=== PATIENT | female | born 1960 | race Caucasian/White ===

== ENCOUNTER 2017-02-11 09:01 | Outpatient (CLI) | payer OTHER | END 2017-02-11 09:02 | disposition home or self-care (01) | DX: Z00.00 Encounter for general adult medical examination without abnormal findings (principal); E78.5 Hyperlipidemia, unspecified ==

== ENCOUNTER 2017-04-29 18:35 | Emergency (ER) | payer OTHER ==
[2017-04-29] MEDS ORDERED: SODIUM CHLORIDE 0.9% 1,000 ML IV ONE ×5 (19:31→22:59)
[2017-04-29 19:44] LABS: BASOPHILS % (AUTO) 0.3 %; HCT - HEMATOCRIT 36.8 % (37.0-47.0); HGB - HEMOGLOBIN 12.2 g/dL (12.0-16.0); LYMPHOCYTES % (AUTO) 4.6 %; MEAN CORPUSCULAR HEMOGLOBIN 29.2 pg (27.0-31.0); MEAN CORPUSCULAR HGB CONC 33.2 g/dL (32.0-36.0); MEAN CORPUSCULAR VOLUME 87.8 fL (81.0-99.0); MEAN PLATELET VOLUME 9.3 fL (7.9-10.8); MONOCYTES % (AUTO) 1.5 %; NEUTROPHILS % (AUTO) 92.6 %; RED CELL DISTRIBUTION WIDTH 13.5 % (12.0-15.0); UNCORRECTED WHITE BLOOD COUNT 6.7 x10^3/uL; WHITE BLOOD COUNT 6.7 x10^3/uL (4.8-10.8)
[2017-04-29 19:57] LABS: ALBUMIN/GLOBULIN RATIO 0.9 (1.0-2.2); BILIRUBIN,TOTAL 1.1 mg/dL (0.2-1.0); CALCIUM 8.4 mg/dL (8.5-10.3); CREATININE 2.1 mg/dL (0.4-1.0); MAGNESIUM 1.6 mg/dL (1.7-2.8); POTASSIUM 3.1 mmol/L (3.5-5.0); TOTAL PROTEIN 6.8 g/dL (6.7-8.2)
[2017-04-29 20:12] LABS: BAND NEUTROPHILS % (MANUAL) 25 %; EOSINOPHILS % (MANUAL) 3 %; LYMPHOCYTES % (MANUAL) 9 %; NEUTROPHILS % (MANUAL) 62 %; PLATELET ESTIMATE, MANUAL DECREASED (<130,000) (NORMAL); PLATELET MORPHOLOGY NORMAL APPEARANCE (NORMAL); TOTAL CELLS COUNTED 100
[2017-04-29 20:14] LABS: NP AUTO DIFFERENTIAL? YES
[2017-04-29 20:15] LABS: NP MAN DIFFERENTIAL? NO
[2017-04-29 20:19] LABS: BILIRUBIN,URINE NEGATIVE (NEGATIVE)
[2017-04-29 20:22] LABS: UA w/ MICROSCOPIC CHARGE YES
[2017-04-29] MEDS ORDERED: cefTRIAXone 1 GM in SODIUM CHLORIDE 0.9% MINIBAG 100 ML IV STA (20:34)
[2017-04-29] MEDS ORDERED: ACETAMINOPHEN 1,000 MG/100 ML 100 ML IV STA (20:35)
--- NOTE | 2017-04-29 20:35 | ED Physician Documentation ---
PD HPI SYNCOPE - Stated complaint Stated Complaint: CHILLS - Chief complaint Chief Complaint: General - History obtained from History obtained from: Patient - History of Present Illness Witnessed: Witnessed (She has had some right back pain and some lower abd pain for 2-3 days. Seen at [facility] 2 days ago and Dx with UTI, Rx with Macrobid. She says she has not had much change in the right back pain until this afternoon. Pain increased and she felt lightheaded but did not faint. Feeling generally weak and chills. Had seen PMD earlier in the day and had outpt CT ordered for this evening to evfl for berkley stone. However feeling more generally sick and so here. Initially on arrival, has tachycardia and low BP at 86 systolic. She is awake and alert though.) Timing - onset: How many days ago (some pain in back for 2-3 days, but feeling weak, chills, worse pain just the past few hours.) Preceding symptoms: Abdominal pain (right side into right flank.). No: Headache Associated symptoms: Abdominal pain (right abd to right flank). No: Headache, Chest pain, Dyspnea, Nausea / vomiting Contributing factors: Decreased PO intake (some decreased intake due to not feeling well.). 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 Patient not feeling better. Increased flank pain and went to PMD today, with order outpt CT KUB to eval for stone. Got feeeling sicker this afternoon before that.) Review of Systems Constitutional: reports: Fever, Chills, Myalgias Nose: denies: Rhinorrhea / runny nose, Congestion Throat: denies: Sore throat Cardiac: denies: Chest pain / pressure Respiratory: denies: Cough GI: reports: Abdominal Pain, Nausea. denies: Abdominal Swelling, Vomiting, Constipation, Diarrhea : denies: Dysuria, Frequency, Discharge, Vaginal bleeding Skin: denies: Rash, Lesions Neurologic: reports: Generalized weakness, Near syncope. denies: Focal weakness , Numbness, Syncope, Altered mental status, Headache Endocrine: denies: Weight loss, Easy bruising / bleeding Immunocompromised: denies: Immunocompromised PD PAST MEDICAL HISTORY - Past Medical History Past Medical History: Yes Cardiovascular: Hypertension Respiratory: None Neuro: None GI: GERD : Kidney stones, Other (usually good renal function) - Past Surgical History Past Surgical History: Yes - Present Medications Home Medications: Ambulatory Orders Medication Instructions Recorded Confirmed Atorvastatin [Lipitor] 20 mg PO DAILY 04/29/17 04/29/17 Azelastine HCl 137 mcg NS DAILY 04/29/17 04/29/17 [place]-3/Dha/Epa/Fish Oil [Fish Oil 1 each PO DAILY 04/29/17 04/29/17 1,000 mg Softgel] Omeprazole [PriLOSEC] 20 mg PO DAILY 04/29/17 04/29/17 hydroCHLOROthiazide [Hydrodiuril] 10 mg PO DAILY 04/29/17 04/29/17 raNITIdine [Zantac] 150 mg PO DAILY 04/29/17 04/29/17 - Allergies Allergies/Adverse Reactions: Allergies Allergy/AdvReac Type Severity Reaction Status Date / Time sulfamethoxazole Allergy Respiratory Verified 04/29/17 19:46 [From Bactrim] trimethoprim [From Bactrim] Allergy Respiratory Verified 04/29/17 19:46 - Social History Does the pt smoke?: No Smoking Status: Never smoker Does the pt drink ETOH?: No Does the pt have substance abuse?: No - Family History Family history: reports: Non contributory PD ED PE NORMAL - Vitals Vital signs reviewed: Yes - General General: Alert and oriented X 3, Well developed/nourished, Other (slight pallor) - Neck Neck: Supple, no meningeal sign, No adenopathy - Cardiac Cardiac: RRR (tachycardic), No murmur - Respiratory Respiratory: Clear bilaterally - Abdomen Abdomen: Normal bowel sounds, Soft, Non distended, No organomegaly, Other ( tender right mid abdomen and right CVA tender to percussion. No rebound nor referred tenderness. Left side not tender. ) - Female Female : Deferred - Rectal Rectal: Deferred - Back Back: Other (right CVA tender) - Derm Derm: Warm and dry. 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, No motor deficit, No sensory deficit, Normal speech - Psych Psych: Normal mood, Normal affect Results - Vitals Vitals: Vital Signs - 24 hr 04/29/17 04/29/17 04/29/17 18:38 19:05 19:16 Temperature 37.9 C H 38.5 C H Heart Rate 133 H 120 H 119 H Respiratory 18 22 22 Rate Blood Pressure 96/63 79/56 L 95/51 L O2 Saturation 93 99 95 04/29/17 04/29/17 04/29/17 19:17 19:19 19:32 Temperature Heart Rate 119 H 118 H Respiratory 18 20 Rate Blood Pressure 89/58 L 86/59 L O2 Saturation 87 L 95 95 04/29/17 04/29/17 04/29/17 20:38 20:39 20:59 Temperature 36.9 C Heart Rate 124 H 122 H 122 H Respiratory 16 25 H 18 Rate Blood Pressure 96/52 L 96/52 L 87/53 L O2 Saturation 96 95 96 04/29/17 04/29/17 04/29/17 21:03 22:00 22:33 Temperature 37.1 C Heart Rate 119 H 121 H Respiratory 22 28 H Rate Blood Pressure 98/56 L 83/53 L 95/56 L O2 Saturation 93 93 04/29/17 04/29/17 04/29/17 23:00 23:22 23:28 Temperature Heart Rate 115 H Respiratory 113 H 116 H Rate Blood Pressure 90/58 L 97/50 L 88/52 L O2 Saturation 95 95 04/29/17 04/29/17 04/29/17 23:33 23:40 23:55 Temperature Heart Rate 110 H 109 H 106 H Respiratory 24 24 Rate Blood Pressure 105/63 102/63 102/61 O2 Saturation 93 92 04/30/17 04/30/17 04/30/17 00:10 00:36 00:37 Temperature 36.7 C 36.9 C Heart Rate 108 H 109 H 108 H Respiratory 25 H 27 H 22 Rate Blood Pressure 113/72 110/69 100/63 O2 Saturation 92 91 L 92 04/30/17 04/30/17 04/30/17 00:48 00:52 01:07 Temperature Heart Rate 112 H 100 111 H Respiratory 22 23 25 H Rate Blood Pressure 89/54 L 97/75 102/78 O2 Saturation 95 97 95 04/30/17 04/30/17 04/30/17 01:08 01:13 01:17 Temperature 37.0 C Heart Rate 108 H 103 H 102 H Respiratory 20 23 25 H Rate Blood Pressure 102/68 93/71 100/66 O2 Saturation 96 95 95 04/30/17 01:22 Temperature Heart Rate 102 H Respiratory 19 Rate Blood Pressure 107/72 O2 Saturation 96 Oxygen O2 Source Nasal cannula - Labs Labs: Laboratory Tests 04/29/17 04/29/17 04/29/17 19:00 19:00 19:00 WBC 6.7 RBC 4.20 Hgb 12.2 Hct 36.8 L MCV 87.8 MCH 29.2 MCHC 33.2 RDW 13.5 Plt Count 124 L MPV 9.3 Neut # INSURANCE SALES ASSISTANT Lymph # INSURANCE SALES ASSISTANT [place] # INSURANCE SALES ASSISTANT Eos # INSURANCE SALES ASSISTANT Baso # INSURANCE SALES ASSISTANT Absolute Nucleated RBC INSURANCE SALES ASSISTANT Total Counted 100 Band Neuts % (Manual) 25 H Neutrophils # (Manual) 5.8 Lymphocytes # (Manual) 0.6 L Monocytes # (Manual) 0.1 Eosinophils # (Manual) 0.2 Nucleated RBCs INSURANCE SALES ASSISTANT Differential Comment MANUAL DIFFERENTIAL Manual Slide Review Indicated WBC Morphology 1+ VACUOLATION Platelet Estimate DECREASED (<130,000) Platelet Morphology NORMAL APPEARANCE RBC Morph Micro Appear 1+ POLYCHROMASIA Sodium 132 L Potassium 3.1 L Chloride 100 L Carbon Dioxide 19 L Anion Gap 13.0 BUN 34 H Creatinine 2.1 H Estimated GFR (MDRD) 25 L Glucose 97 POC Whole Bld Glucose Lactic Acid 2.4 H Calcium 8.4 L Magnesium 1.6 L Total Bilirubin 1.1 H AST 37 ALT 45 Alkaline Phosphatase 78 Total Protein 6.8 Albumin 3.2 Globulin 3.6 Albumin/Globulin Ratio 0.9 L Lipase 11 L Urine Color Urine Clarity Urine pH Ur Specific [place] Urine Protein Urine Glucose (UA) Urine Ketones Urine Occult Blood Urine Nitrite Urine Bilirubin Urine Urobilinogen Ur Leukocyte Esterase Urine RBC Urine WBC Ur Epithelial Cells Ur Squamous Epith Cells Urine Bacteria Urine Casts Ur Microscopic Review Urine Culture Comments 04/29/17 04/30/17 20:00 01:10 WBC RBC Hgb Hct MCV MCH MCHC RDW Plt Count MPV Neut # Lymph # [place] # Eos # Baso # Absolute Nucleated RBC Total Counted Band Neuts % (Manual) Neutrophils # (Manual) Lymphocytes # (Manual) Monocytes # (Manual) Eosinophils # (Manual) Nucleated RBCs Differential Comment Manual Slide Review WBC Morphology Platelet Estimate Platelet Morphology RBC Morph Micro Appear Sodium Potassium Chloride Carbon Dioxide Anion Gap BUN Creatinine Estimated GFR (MDRD) Glucose POC Whole Bld Glucose 92 Lactic Acid Calcium Magnesium Total Bilirubin AST ALT Alkaline Phosphatase Total Protein Albumin Globulin Albumin/Globulin Ratio Lipase Urine Color YELLOW Urine Clarity CLOUDY Urine pH 6.0 Ur Specific [place] 1.015 Urine Protein 100 H Urine Glucose (UA) NEGATIVE Urine Ketones TRACE Urine Occult Blood SMALL H Urine Nitrite POSITIVE H Urine Bilirubin NEGATIVE Urine Urobilinogen 0.2 (NORMAL) Ur Leukocyte Esterase MODERATE H Urine RBC 0-5 Urine WBC 11-25 H Ur Epithelial Cells FEW Renal Tubular Ur Squamous Epith Cells MANY Squamous H Urine Bacteria Many H Urine Casts 0-2 Fine Granular Ur Microscopic Review INDICATED Urine Culture Comments NOT INDICATED - Rads (name of study) Abd/pelvic CT Radiology: Prelim report reviewed (5x4 mm stone proximal ureter at level L3, with hydronephrosis and dilated proximal ureter. Vascular/aorta appears normal. ) chest - line placement Radiology: Prelim report reviewed, EMP read contemporaneously (no PTX. Line appears in good position. ) Procedures - Central Line Central Line Preparation: Consent Obtained, Time out completed, Ultrasound used , Sterile prep and drape Central line location: Right IJ Central line type: Double lumen Central line aftercare: Chlorhexidine disc placed, Placement confirmed, No pneumothorax, No complications, Pt tolerated well PD MEDICAL DECISION MAKING - ED course Complexity details: reviewed results, re-evaluated patient, considered differential (concern for vascular process such as aortic aneurysm. bedside U/S shows no free fluid. However want to get CT to evaluate. Her IV was 18G but not in AC so could not get angio, and talked with Radiologist and should get good view with lower dose contrast as regular CT. I wanted to get CT promptly but did get labs back before she got over for imaging, and then discussion with Radiologist about elevated Creatinine. She has gotten IV fluids and baseline creatinine is good in January, so obstructive uropathy and I felt the value of evaluating vascular process is higher priority. CT obtained and the reading went into regular Rad rotation. We called and asked for it to be read more promptly. It did show normal vascular but had proximal ureteral stone with obstruction. The concern then is that she is septic with low BP, elevated heart rate, Lactate 2.4 and elevated Creatinine since 2 days ago. I feel she will need stent with improved flow around the stone in order to improve the sepsis. She is given IV fluid boluses here with still BP low in 90s systolic. Added Norepi drip and this was titrated up. She did have improved BP to 100-110 systolic. Remains tachycardic at 110. She is awake and alert, talkative, with improved color. IV Rocephin given for UTI/orosepsis. Hoping to improve ureteral swelling, gave dose Decadron. Did not igve Toradol due to Creatinine. When BP improved to high 90s/over 100, did give small doses of Fentanyl for pain, which she tolerated without change in BP. ), d/w patient, d/w process consultant (Dr. Carrillo, Fish Cutting Machine Operator at [facility], who accepts transfer pending consult with Urology. Talked with Dr. Berger, Urology, who will consult and take patient to OR for stent place on her arrival there. Dr. Carrillo updated. ) - Critical Care Time(min): 60 Time Includes: Direct patient care, Review records, Reassess patient, Document care, Medical consult Data interpretation: Labs, Pulse ox, CXR Procedures excluded from critical care time: Central IV Departure - Departure Disposition: 02 Transfer Acute Care Hosp Clinical Impression: Ureterolithiasis, Acute right flank pain UTI (urinary tract infection) Qualifiers: Urinary tract infection type: acute pyelonephritis Qualified Code(s): N10 - Acute pyelonephritis Sepsis Qualifiers: Sepsis type: sepsis due to unspecified organism Qualified Code(s): A41.9 - Sepsis, unspecified organism Condition: Stable Record reviewed to determine appropriate education?: Yes
[2017-04-29 20:40] LABS: UR CULTURE IF IND NOT INDICATED
[2017-04-29] MEDS ORDERED: IOPAMIDOL-300 100 ML VIAL IVP ONE (20:42)
[2017-04-29] MEDS ORDERED: fentaNYL 100 MCG/2 ML VIAL IVP STA (20:46)
[2017-04-29] MEDS ORDERED: cefTRIAXone 1 GM VIAL ONE (20:49)
[2017-04-29] MEDS ORDERED: fentaNYL 100 MCG/2 ML VIAL ONE (20:49)
[2017-04-29] MEDS ORDERED: ACETAMINOPHEN 1,000 MG/100 ML 100 ML IV ONE (20:49)
--- NOTE | 2017-04-29 21:58 | CT Preliminary Report ---
Exam: CT Abdomen/Pelvis W/ IMPRESSION: 1. Nephrolithiasis with moderate hydronephrosis and an obstructing right ureteropelvic junction stone measuring 5 x 4 mm. 2. Minimal left hydronephrosis with abrupt transition at the level of the distal left ureter although without evidence of ureteral stone. Differential diagnosis includes decompression of the distal uret er secondary to peristalsis or an underlying stricture or mucosal lesion. Follow-up dedicated CT-IVP suggested for further characterization. 3. Cholelithiasis without evidence of cholecystitis. 4. Small hiatal hernia. 5. Bibasilar patchy atelectasis. [facility] SITE ID: [id number]
--- NOTE | 2017-04-29 22:01 | CT Report ---
EXAM: CT ABDOMEN AND PELVIS EXAM DATE: 04/29/2017 08:43 PM. CLINICAL HISTORY: Right abdominal pain and hypotension. COMPARISONS: Abdomen and pelvis CT 05/31/2009. TECHNIQUE: Routine helical CT imaging was performed through the abdomen and pelvis. IV contrast: 70 c c Isovue 300. Enteric contrast: No. Reconstructions: Coronal and sagittal. In accordance with CT protocol optimization, one or more of the following dose reduction techniques w ere utilized for this exam: automated exposure control, adjustment of mA and/or KV based on patient s ize, or use of iterative reconstructive technique. FINDINGS: Lung Bases: Patchy and linear opacities bilateral lung bases. Small hiatal hernia. Liver: Normal. No masses. Gallbladder/Bile Ducts: Moderately distended gallbladder with cholelithiasis although without gallbla dder wall thickening or adjacent inflammation. Spleen: Normal. Pancreas: Normal. Adrenal Glands: Normal. Kidneys: Left kidney is normal in contour with minimal dilatation of the ureter with abrupt transitio n at the level of the distal ureter without definite nephrolithiasis in the left ureter. Note is made of an exophytic cyst of the upper pole of the right kidney with mild right perinephric edema. There is moderate right hydronephrosis with a ureteropelvic junction stone measuring 5 x 4 mm (3, 45). Peritoneal Cavity/Bowel: Small hiatal hernia. The stomach is decompressed. There are no dilated loops of large or small intestine. Appendix is normal in caliber although note is made of an appendicolith at the base of the appendix. Pelvic Organs: The bladder is unremarkable and the patient is status post tubal ligation. Vasculature: No aneurysms or other significant abnormality. Bones: Degenerative disk disease lumbar spine. Other: None. IMPRESSION: 1. Nephrolithiasis with moderate hydronephrosis and an obstructing right ureteropelvic junction stone measuring 5 x 4 mm. 2. Minimal left hydronephrosis with abrupt transition at the level of the distal left ureter although without evidence of ureteral stone. Differential diagnosis includes decompression of the distal uret er secondary to peristalsis or an underlying stricture or mucosal lesion. Follow-up dedicated CT-IVP suggested for further characterization. 3. Cholelithiasis without evidence of cholecystitis. 4. Small hiatal hernia. 5. Bibasilar patchy atelectasis. [facility] Referring Provider Line: [phone] SITE ID: [id number]
[2017-04-29] MEDS ORDERED: DEXTROSE 5% 250 ML IV ONE (22:14)
[2017-04-29] MEDS ORDERED: DEXAMETHASONE 10 MG/ML VIAL IVP STA (23:36)
[2017-04-29] MEDS ORDERED: DEXAMETHASONE 10 MG/ML VIAL ONE (23:37)
[2017-04-30] MEDS ORDERED: fentaNYL 100 MCG/2 ML VIAL IVP STA (00:40)
[2017-04-30] MEDS ORDERED: fentaNYL 100 MCG/2 ML VIAL ONE (00:44)
[2017-04-30] MEDS ORDERED: cefTRIAXone 1 GM in SODIUM CHLORIDE 0.9% MINIBAG 100 ML IV STA (00:55)
[2017-04-30] MEDS ORDERED: SODIUM CHLORIDE 0.9% MINIBAG 100 ML IV ONE (01:00)
[2017-04-30] MEDS ORDERED: SODIUM CHLORIDE 0.9% 2,000 ML IV ONE (01:00)
[2017-04-30] MEDS ORDERED: cefTRIAXone 1 GM VIAL ONE (01:00)
[2017-04-30] MEDS ORDERED: SODIUM CHLORIDE 0.9% 1,000 ML IV ONE (01:00)
--- NOTE | 2017-04-30 01:28 | XRAY Preliminary Report ---
Exam: XR Chest 1 View IMPRESSION: 1. Central line is not identified. 2. Opacity at right medial lung base may represent aspiration or pneumonia. [facility] SITE ID: [id number]
--- NOTE | 2017-04-30 01:30 | XRAY Report ---
EXAM: CHEST RADIOGRAPHY EXAM DATE: 04/30/2017 12:52 AM. CLINICAL HISTORY: Central line placement. COMPARISON: 09/10/2010. TECHNIQUE: 1 view. FINDINGS: Patient is rotated. Lungs/Pleura: There are low lung volumes. There is an area of consolidation at the right medial lung base. There is linear opacity at the left lung base.. There is prominence of pulmonary vasculature No pleural effusion. No pneumothorax. Mediastinum: There is mild cardiomegaly. Other: There is widening of the right AC joint.. IMPRESSION: 1. Central line is not identified. 2. Opacity at right medial lung base may represent aspiration or pneumonia. [facility] Referring Provider Line: [phone] SITE ID: [id number]
[2017-04-30 01:46] VITALS: BP 97/66
== END 2017-04-30 01:55 | disposition short-term general hospital (02) ==
LOC: ED 18:35
DX: A41.9 Sepsis, unspecified organism (principal); N10 Acute pyelonephritis; N20.1 Calculus of ureter; I10 Essential (primary) hypertension; K21.9 Gastro-esophageal reflux disease without esophagitis; N39.0 Urinary tract infection, site not specified
CPT/HCPCS: 36415; 36556; 51702; 71010; 74177; 80053; 81001; 83605; 83690; 83735; 85025; 87040; 87077; 87181; 96361; 96365; 96366; 96375; 96376; 99285; 99291; J0131; Q9967; 81003; 87086

== ENCOUNTER 2017-04-30 01:58 | Outpatient (CLI) | payer OTHER | END 2017-04-30 01:59 | disposition short-term general hospital (02) | DX: R39.89 Other symptoms and signs involving the genitourinary system (principal) | CPT/HCPCS: A0425; A0426 ==

== ENCOUNTER 2017-11-30 08:00 | Outpatient (CLI) | payer OTHER ==
[2017-11-30 12:41] LABS: BASOPHILS # (AUTO) 0.1 10^3/uL (0.0-0.1); BASOPHILS % (AUTO) 1.3 %; EOSINOPHILS # (AUTO) 0.4 10^3/uL (0.0-0.7); EOSINOPHILS % (AUTO) 9.6 %; HGB - HEMOGLOBIN 13.3 g/dL (12.0-16.0); LYMPHOCYTES # (AUTO) 1.6 10^3/uL (1.5-3.5); LYMPHOCYTES % (AUTO) 34.4 %; MEAN CORPUSCULAR HEMOGLOBIN 29.9 pg (27.0-31.0); MEAN CORPUSCULAR HGB CONC 33.8 g/dL (32.0-36.0); MEAN CORPUSCULAR VOLUME 88.3 fL (81.0-99.0); MEAN PLATELET VOLUME 9.2 fL (7.9-10.8); MONOCYTES # (AUTO) 0.3 10^3/uL (0.0-1.0); MONOCYTES % (AUTO) 6.8 %; NEUTROPHILS # (AUTO) 2.2 10^3/uL (1.5-6.6); NEUTROPHILS % (AUTO) 47.9 %; PLT - PLATELET COUNT 246 10^3/uL (130-450); RED BLOOD COUNT 4.45 10^6/uL (4.20-5.40); RED CELL DISTRIBUTION WIDTH 13.4 % (12.0-15.0); WHITE BLOOD COUNT 4.6 x10^3/uL (4.8-10.8)
[2017-11-30 12:49] LABS: ALBUMIN 3.9 g/dL (3.2-5.5); ALBUMIN/GLOBULIN RATIO 1.1 (1.0-2.2); ALKALINE PHOSPHATASE 46 IU/L (42-121); ALT ALANINE AMINOTRANSFERASE 23 IU/L (10-60); AST ASPARTATE AMINOTRANSFERASE 21 IU/L (10-42); BILIRUBIN,TOTAL 0.6 mg/dL (0.2-1.0); BUN - BLOOD UREA NITROGEN 21 mg/dL (6-20); CALCIUM 8.9 mg/dL (8.5-10.3); CARBON DIOXIDE - CO2 22 mmol/L (21-32); CHLORIDE 105 mmol/L (101-111); CHOLESTEROL 177 mg/dL; GFR - MDRD 58 (>89); GLUCOSE 110 mg/dL (70-100); HDL CHOLESTEROL 59 mg/dL; LDL CHOLESTEROL,CALCULATED 91 mg/dL; LDL/HDL RATIO 1.5 (<4.4); SODIUM 137 mmol/L (135-145); TOTAL PROTEIN 7.6 g/dL (6.7-8.2); VLDL CHOLESTEROL 27 mg/dL
[2017-11-30 13:08] LABS: HB2 TOTAL 14.4 g/dL; HEMOGLOBIN A1C 0.52 g/dL; HEMOGLOBIN A1C % 5.5 % (4.6-6.2)
== END 2017-11-30 23:59 | disposition home or self-care (01) ==
LOC: LAB.WCP 08:00
PROVIDERS: ATTEND Family Medicine
DX: Z00.00 Encounter for general adult medical examination without abnormal findings (principal); E78.5 Hyperlipidemia, unspecified; R73.9 Hyperglycemia, unspecified; Z79.899 Other long term (current) drug therapy
CPT/HCPCS: 36415; 80050; 80061; 83036; 83721

== ENCOUNTER 2017-12-09 11:00 | Outpatient (CLI) | payer OTHER ==
--- NOTE | 2017-12-10 15:29 | Mammography Report ---
DIGITAL SCREENING MAMMOGRAM: 12/09/2017 CLINICAL INDICATION: A 57-year-old with family history of breast cancer, for screening. COMPARISON: 12/2014, 11/2013, 06/2011, 05/2010. TECHNIQUE: Routine CC and MLO projections were obtained of the breasts. FINDINGS: The breasts again demonstrate heterogeneously dense fibroglandular parenchyma bilaterally. Punctate, typically benign calcifications are present. No suspicious masses, clustered microcalcifications, or regions of architectural distortion are identified. IMPRESSION: BENIGN FINDINGS. RECOMMENDATION: ROUTINE ANNUAL SCREENING UNLESS OTHERWISE CLINICALLY INDICATED. BIRADS CATEGORY 2-BENIGN FINDINGS. STANDARD QUALIFYING STATEMENTS: 1. This examination was reviewed with the aid of Computer-Aided Detection (CAD). 2. A negative or benign imaging report should not delay biopsy if clinically suspicious findings are present. Consider surgical consultation if warranted. More than 5% of cancers are not identified by imaging. 3. Dense breasts may obscure an underlying neoplasm. TD: 12/10/2017 15:27
== END 2017-12-09 11:01 | disposition home or self-care (01) ==
LOC: DI 11:00
PROVIDERS: ATTEND Family Medicine
DX: Z12.31 Encounter for screening mammogram for malignant neoplasm of breast (principal); Z80.3 Family history of malignant neoplasm of breast
CPT/HCPCS: 77067

== ENCOUNTER 2018-03-03 08:00 | Outpatient (CLI) | payer OTHER ==
[2018-03-03 19:29] LABS: ALBUMIN 3.9 g/dL (3.2-5.5); ALBUMIN/GLOBULIN RATIO 1.1 (1.0-2.2); BILIRUBIN,TOTAL 0.6 mg/dL (0.2-1.0); CALCIUM 8.9 mg/dL (8.5-10.3); TOTAL PROTEIN 7.4 g/dL (6.7-8.2)
== END 2018-03-03 08:01 | disposition home or self-care (01) ==
LOC: LAB.WCP 08:00
PROVIDERS: ATTEND Family Medicine
DX: Z79.899 Other long term (current) drug therapy (principal)
CPT/HCPCS: 36415; 80053

== ENCOUNTER 2018-08-18 16:15 | Emergency (ER) | payer OTHER ==
[2018-08-18 16:56] LABS: BASOPHILS # (AUTO) 0.1 10^3/uL (0.0-0.1); BASOPHILS % (AUTO) 1.5 %; EOSINOPHILS # (AUTO) 0.6 10^3/uL (0.0-0.7); HGB - HEMOGLOBIN 13.1 g/dL (12.0-16.0); LYMPHOCYTES # (AUTO) 0.9 10^3/uL (1.5-3.5); LYMPHOCYTES % (AUTO) 15.4 %; MEAN CORPUSCULAR HEMOGLOBIN 29.7 pg (27.0-31.0); MEAN CORPUSCULAR HGB CONC 33.2 g/dL (32.0-36.0); MEAN CORPUSCULAR VOLUME 89.4 fL (81.0-99.0); MEAN PLATELET VOLUME 8.3 fL (7.9-10.8); MONOCYTES # (AUTO) 0.3 10^3/uL (0.0-1.0); MONOCYTES % (AUTO) 5.7 %; NEUTROPHILS # (AUTO) 4.1 10^3/uL (1.5-6.6); NEUTROPHILS % (AUTO) 67.4 %; PLT - PLATELET COUNT 257 10^3/uL (130-450); RED BLOOD COUNT 4.42 10^6/uL (4.20-5.40); RED CELL DISTRIBUTION WIDTH 13.8 % (12.0-15.0)
[2018-08-18 17:08] LABS: ALBUMIN/GLOBULIN RATIO 1.1 (1.0-2.2); BILIRUBIN,TOTAL 0.5 mg/dL (0.2-1.0); CREATININE 1.1 mg/dL (0.4-1.0); TOTAL PROTEIN 7.6 g/dL (6.7-8.2)
--- NOTE | 2018-08-18 18:51 | ED Physician Documentation ---
PD HPI ABD PAIN - Stated complaint Stated Complaint: ABD PX N/V - Chief complaint Chief Complaint: Abd Pain - History obtained from History obtained from: Patient - History of Present Illness Timing - onset: Last night Timing - duration: Days (1) Timing - details: Abrupt onset, Still present Quality: Aching, Sharp, Pain Location: LLQ Radiation: Left flank Improved by: No: Laying still Worsened by: No: Moving, Breathing, Palpation Associated symptoms: Nausea, Constipation. No: Fever, Diarrhea, Dysuria, Hematuria Similar symptoms before: Diagnosis (kidney stones in the past) Review of Systems Constitutional: denies: Fever, Chills, Myalgias Nose: denies: Rhinorrhea / runny nose, Congestion Throat: denies: Sore throat Cardiac: denies: Chest pain / pressure Respiratory: denies: Cough GI: reports: Abdominal Pain, Nausea. 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 : Kidney stones, Other HEENT: None Psych: None Derm: None - Past Surgical History Past Surgical History: Yes - Present Medications Home Medications: Ambulatory Orders Medication Instructions Recorded Confirmed Atorvastatin [Lipitor] 20 mg PO DAILY 04/29/17 04/29/17 [place]-3/Dha/Epa/Fish Oil [Fish Oil 1 each PO DAILY 04/29/17 04/29/17 1,000 mg Softgel] Omeprazole [PriLOSEC] 20 mg PO DAILY 04/29/17 04/29/17 hydroCHLOROthiazide [Hydrodiuril] 10 mg PO DAILY 04/29/17 04/29/17 raNITIdine [Zantac] 150 mg PO DAILY 04/29/17 04/29/17 Cephalexin [Keflex] 500 mg PO TID #18 capsule 08/18/18 Naproxen 375 mg PO BID #20 tablet 08/18/18 Ondansetron Odt [Zofran] 4 mg TL Q6H PRN #15 tablet 08/18/18 Oxycodone HCl/Acetaminophen 1 each PO Q6H PRN #20 tablet 08/18/18 [Percocet 5-325 mg Tablet] - Allergies Allergies/Adverse Reactions: Allergies Allergy/AdvReac Type Severity Reaction Status Date / Time sulfamethoxazole Allergy Respiratory Verified 04/29/17 19:46 [From Bactrim] trimethoprim [From Bactrim] Allergy Respiratory Verified 08/18/18 16:31 - Social History Does the pt smoke?: No Smoking Status: Never smoker Does the pt drink ETOH?: Yes Does the pt have substance abuse?: No - Immunizations Immunizations are current?: No - POLST Patient has POLST: No PD ED PE NORMAL - Vitals Vital signs reviewed: Yes - General General: Alert and oriented X 3, No acute distress, Well developed/nourished - Neck Neck: Supple, no meningeal sign, No adenopathy - Cardiac Cardiac: RRR, No murmur - Respiratory Respiratory: Clear bilaterally - Abdomen Abdomen: Normal bowel sounds, Soft, Non tender, Non distended, No organomegaly - Female Female : Deferred - Rectal Rectal: Deferred - Back Back: Other (some left CVA tenderness to percussion. No rash nor sores. ) - Derm Derm: Normal color, Warm and dry - Neuro Neuro: Alert and oriented X 3, No motor deficit, Normal speech Results - Vitals Vitals: Oxygen O2 Source Room air - Labs Labs: Laboratory Tests 08/18/18 08/18/18 08/18/18 16:40 16:50 16:50 WBC 6.0 RBC 4.42 Hgb 13.1 Hct 39.5 MCV 89.4 MCH 29.7 MCHC 33.2 RDW 13.8 Plt Count 257 MPV 8.3 Neut # (Auto) 4.1 Lymph # (Auto) 0.9 L [place] # (Auto) 0.3 Eos # (Auto) 0.6 Baso # (Auto) 0.1 Absolute Nucleated RBC 0.00 Nucleated RBC % 0.1 Sodium 139 Potassium 3.6 Chloride 108 Carbon Dioxide 22 Anion Gap 9.0 BUN 16 Creatinine 1.1 H Estimated GFR (MDRD) 51 L Glucose 108 H Calcium 9.0 Total Bilirubin 0.5 AST 26 ALT 34 Alkaline Phosphatase 52 Total Protein 7.6 Albumin 4.0 Globulin 3.6 Albumin/Globulin Ratio 1.1 Lipase 26 Urine Color YELLOW Urine Clarity CLEAR Urine pH 6.5 Ur Specific [place] <=1.005 Urine Protein NEGATIVE Urine Glucose (UA) NEGATIVE Urine Ketones NEGATIVE Urine Occult Blood NEGATIVE Urine Nitrite NEGATIVE Urine Bilirubin NEGATIVE Urine Urobilinogen 0.2 (NORMAL) Ur Leukocyte Esterase SMALL H Urine RBC 0-5 Urine WBC >25 H Urine WBC Clumps PRESENT Ur Squamous Epith Cells MANY Squamous H Urine Bacteria Rare Ur Microscopic Review INDICATED Urine Culture Comments NOT INDICATED - Rads (name of study) KUB CT Radiology: Prelim report reviewed (no acute process. No urteral stones. ), EMP read contemporaneously (I think there is a 3 mm stone in mid left ureter, following course of the ureter, but no hydro, so could be outside of the ureter. ) PD MEDICAL DECISION MAKING - ED course Complexity details: reviewed results (Radiologist read as no ureteral stones; however I think there is a possible 3 mm stone mid left ureter. No hydronephrosis though, so not certain. I conveyed this to patient the discrepant reading between me and Radiologist. Treatment would not differ if there is a stone. Some UTI evident and will treat that, given how sick she had gotten from infected stone previously. ), considered differential, d/w patient Departure - Departure Disposition: 01 Home, Self Care Clinical Impression: Acute left flank pain, Ureterolithiasis UTI (urinary tract infection) Qualifiers: Urinary tract infection type: acute cystitis Hematuria presence: without hematuria Qualified Code(s): N30.00 - Acute cystitis without hematuria Condition: Stable Record reviewed to determine appropriate education?: Yes Instructions: ED Flank Pain Uncertain Cause, ED UTI Cystitis Female Follow-Up: Paulette Faye MD [Primary Care Provider] - Prescriptions: Cephalexin [Keflex] 500 mg PO TID #18 capsule Naproxen 375 mg PO BID #20 tablet Ondansetron Odt [Zofran] 4 mg TL Q6H PRN #15 tablet PRN Reason: Nausea / Vomiting Oxycodone HCl/Acetaminophen [Percocet 5-325 mg Tablet] 1 each PO Q6H PRN #20 tablet PRN Reason: Pain Comments: Your CT scan did not show other causes for the pain. The radiologist feels there are no kidney stones passing. However I think I see a calcification in the looks like it is in the ureter. We can treat it as a possible kidney stone at this point with anti-inflammatories and pain medicine. That would be treatment for musculoskeletal pain or other causes as well. There is a trace of a urinary tract infection we can go with cephalexin for that. Ondansetron if needed for nausea. Recheck if not improved over the next 2-3 days. Return if other symptoms develop that would change the diagnosis such as fevers, diarrhea, bloody stool, skin rash, other concerns. Discharge Date/Time: 08/18/18 21:53
[2018-08-18 19:01] LABS: BILIRUBIN,URINE NEGATIVE (NEGATIVE); GLUCOSE, URINE (UA) NEGATIVE (NEGATIVE); KETONES,URINE (UA) NEGATIVE (NEGATIVE); LEUKOCYTE ESTERASE, URINE SMALL (NEGATIVE); NITRITE,URINE NEGATIVE (NEGATIVE); OCCULT BLOOD,URINE NEGATIVE (NEGATIVE); PH,URINE 6.5 PH (5.0-7.5); PROTEIN,URINE NEGATIVE (NEGATIVE); UROBILINOGEN,URINE 0.2 (NORMAL) E.U./dL (NORMAL)
[2018-08-18] MEDS ORDERED: SODIUM CHLORIDE 0.9% 1,000 ML IV ONE (19:05)
[2018-08-18] MEDS ORDERED: KETOROLAC 15 MG/ML VIAL IVP STA (19:05)
[2018-08-18] MEDS ORDERED: ONDANSETRON 4 MG/2 ML VIAL IVP STA (19:05)
[2018-08-18] MEDS ORDERED: LIDOCAINE-MPF 2% 7 ML in SODIUM CHLORIDE 0.9% 50 ML IV STA (19:05)
[2018-08-18 19:06] LABS: CLARITY,URINE CLEAR (CLEAR)
[2018-08-18] MEDS ORDERED: HYDROmorphone 2 MG/ML VIAL IVP STA (19:06)
[2018-08-18 19:17] LABS: BACTERIA,URINE Rare /HPF (None Seen); RBC,URINE 0-5 /HPF (0-5); SQUAMOUS EPITHELIAL CELL,UR MANY Squamous (<= Few); WBC CLUMPS,URINE PRESENT
[2018-08-18] MEDS ORDERED: cefTRIAXone 1 GM in SODIUM CHLORIDE 0.9% MINIBAG 100 ML IV STA (19:58)
--- NOTE | 2018-08-18 20:37 | CT Report ---
Reason: left flank pain; history of stones Procedure Date: 08/18/2018 Accession Number: [id number] / [id number] Procedure: CT - KUB CPT Code: FULL RESULT: EXAM: CT ABDOMEN AND PELVIS (CT KUB) EXAM DATE: 08/18/2018 08:25 PM. CLINICAL HISTORY: Left flank pain; history of stones. COMPARISONS: 04/29/2017. TECHNIQUE: Routine axial helical CT imaging was performed through the abdomen and pelvis without IV contrast. Reconstructions: Coronal and sagittal. In accordance with CT protocol optimization, one or more of the following dose reduction techniques were utilized for this exam: automated exposure control, adjustment of mA and/or KV based on patient size, or use of iterative reconstructive technique. FINDINGS: Lung Bases: Small hiatal hernia, unchanged compared to prior. Right Kidney/Ureter: Resolution of hydronephrosis from previous stone. No right renal stones. Cyst in the upper pole of the right kidney is not significantly changed. Left Kidney/Ureter: No stones, hydronephrosis, or hydroureter. No perinephric fat stranding. Other Solid Organs: Noncontrast images of the solid organs are grossly unremarkable. Gallbladder/Bile Ducts: Gallstones again seen within the gallbladder, which is nondistended. No biliary duct dilatation. Peritoneal Cavity: No free fluid, free air or gemini adenopathy. Bowel is grossly unremarkable. Appendix is normal. Pelvic Organs: No bladder stones or wall thickening. Noncontrast images of the visualized pelvic organs are unremarkable. Vasculature: Unremarkable. Other: Degenerative changes of the spine, particularly at L2-L3 and L5-S1, unchanged. IMPRESSION: 1. No CT evidence of urolithiasis at this time. 2. Cholelithiasis. RADIA
[2018-08-18] MEDS ORDERED: ONDANSETRON ODT 4 MG Prepack 2 TL PRN (21:13)
[2018-08-18] MEDS ORDERED: oxyCODONE/ACET 5/325 Prepack 4 PO STA (21:13)
[2018-08-18] MEDS ORDERED: DEXAMETHASONE 10 MG/ML VIAL IVP STA (21:13)
[2018-08-18 21:42] VITALS: BP 118/78
== END 2018-08-18 21:53 | disposition home or self-care (01) ==
LOC: ED 16:15
DX: N20.1 Calculus of ureter (principal); N30.00 Acute cystitis without hematuria; I10 Essential (primary) hypertension; R11.0 Nausea
CPT/HCPCS: 36415; 74176; 80053; 81001; 83690; 85025; 96365; 96375; 99283; 99284; J1170; J7040; 81003; 87086

== ENCOUNTER 2018-12-02 09:06 | Outpatient (CLI) | payer OTHER ==
--- NOTE | 2018-12-02 14:37 | XRAY Report ---
Reason: KNEE JOINT PX,LEFT Procedure Date: 12/02/2018 Accession Number: [id number] / [id number] Procedure: WCP - Knee 3 View LT CPT Code: FULL RESULT: EXAM: LEFT KNEE RADIOGRAPHY EXAM DATE: 12/02/2018 09:06 AM. CLINICAL HISTORY: Left knee pain. COMPARISON: KNEE 3 VIEW LT 05/17/2018 12:11 PM. TECHNIQUE: 3 views. FINDINGS: Bones: Normal. No fractures or bone lesions. Joints: Narrowing of patellofemoral joint space and medial compartment. Tricompartmental osteophytes. Soft Tissues: 1. Moderate left knee degenerative changes. Kellgren Gianfranco grade 3. Kellgren and Gianfranco classification of osteoarthritis: Grade 0: no radiographic features of osteoarthritis are present Grade 1: doubtful joint space narrowing (JSN) and possible osteophytic lipping Grade 2: definite osteophytes and possible JSN on anteroposterior weight-bearing radiograph Grade 3: multiple osteophytes, definite JSN, sclerosis, possible bony deformity Grade 4: large osteophytes, marked JSN, severe sclerosis and definite bony deformity RADIA
== END 2018-12-02 09:07 | disposition home or self-care (01) ==
LOC: DI.WCP 09:06
PROVIDERS: ATTEND Family Medicine
DX: M17.12 Unilateral primary osteoarthritis, left knee (principal)

== ENCOUNTER 2018-12-06 11:57 | Outpatient (CLI) | payer OTHER ==
--- NOTE | 2018-12-06 13:43 | XRAY Report ---
Reason: KNEE JOINT PX,LEFT Procedure Date: 12/06/2018 Accession Number: [id number] / [id number] Procedure: WCP - Knee 3 View LT CPT Code: FULL RESULT: EXAM: LEFT KNEE RADIOGRAPHY EXAM DATE: 12/06/2018 12:06 PM. CLINICAL HISTORY: KNEE JOINT Pain, left. Fall onto knee. COMPARISON: KNEE 3 VIEW LT 12/02/2018 9:06 AM KNEE 3 VIEW LT 05/17/2018 12:11 PM. TECHNIQUE: 3 views. FINDINGS: Bones: Normal. No fractures or bone lesions. Joints: No subluxation or dislocation. No knee joint effusion. There is mild joint space narrowing and moderate marginal osteophyte formation at the medial and patellofemoral compartments. There is mild marginal osteophyte formation at the lateral compartment. Soft Tissues: Unremarkable. No focal soft tissue swelling. IMPRESSION: 1. No acute osseous abnormality of the knee. 2. Moderate degenerative osteoarthritis, as seen on the recent prior exam. RADIA
== END 2018-12-06 11:58 | disposition home or self-care (01) ==
LOC: DI.WCP 11:57
PROVIDERS: ATTEND Family Medicine
DX: S89.92XA Unspecified injury of left lower leg, initial encounter (principal); M17.12 Unilateral primary osteoarthritis, left knee

== ENCOUNTER 2020-06-24 07:06 | Emergency (ER) | payer OTHER ==
[2020-06-24 07:21] VITALS: BP 145/87
[2020-06-24] MEDS ORDERED: TETANUS/DIPHTHERIA/PERTUSSIS 0.5 ML SYRINGE IM ONE (07:47)
--- NOTE | 2020-06-24 07:50 | ED Physician Documentation ---
PD HPI UPPER EXT INJURY - Stated complaint Stated Complaint: L HAND LAC - Chief complaint Chief Complaint: Laceration - History obtained from History obtained from: Patient - History of Present Illness Location: Left, Finger (middle) Type of injury: Laceration Where injury occurred: Work Timing - onset: How many hours ago (1) Timing - duration: Hours (1) Timing - details: Abrupt onset Pain level max: 2 Pain level now: 0 Improved by: Rest Worsened by: Moving, Palpating Associated symptoms: No: Weakness, Numbness, Tingling, Swelling Similar symptoms before: Has not had sx before Recently seen: Not recently seen Review of Systems Constitutional: denies: Fever Neurologic: denies: Focal weakness, Numbness PD PAST MEDICAL HISTORY - Past Medical History Cardiovascular: Hypertension Respiratory: None Neuro: None Endocrine/Autoimmune: None GI: GERD 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 : Kidney stones, Other HEENT: None Psych: None Derm: None - Past Surgical History Past Surgical History: Yes - Present Medications Home Medications: Ambulatory Orders Medication Instructions Recorded Confirmed Atorvastatin [Lipitor] 20 mg PO DAILY 04/29/17 04/29/17 [place]-3/Dha/Epa/Fish Oil [Fish Oil 1 each PO DAILY 04/29/17 04/29/17 1,000 mg Softgel] Omeprazole [PriLOSEC] 20 mg PO DAILY 04/29/17 04/29/17 hydroCHLOROthiazide [Hydrodiuril] 10 mg PO DAILY 04/29/17 04/29/17 raNITIdine [Zantac] 150 mg PO DAILY 04/29/17 04/29/17 Cephalexin [Keflex] 500 mg PO TID #18 capsule 08/18/18 Naproxen 375 mg PO BID #20 tablet 08/18/18 Ondansetron Odt [Zofran] 4 mg TL Q6H PRN #15 tablet 08/18/18 Oxycodone HCl/Acetaminophen 1 each PO Q6H PRN #20 tablet 08/18/18 [Percocet 5-325 mg Tablet] - Allergies Allergies/Adverse Reactions: Allergies Allergy/AdvReac Type Severity Reaction Status Date / Time sulfamethoxazole Allergy Respiratory Verified 04/29/17 19:46 [From Bactrim] trimethoprim [From Bactrim] Allergy Respiratory Verified 08/18/18 16:31 - Social History Does the pt smoke?: No Smoking Status: Never smoker Does the pt drink ETOH?: Yes Does the pt have substance abuse?: No - Immunizations Immunizations are current?: No Immunizations: TDAP >10years/unknown - POLST Patient has POLST: No PD ED PE NORMAL - Vitals Vital signs reviewed: Yes - General General: Alert and oriented X 3, No acute distress - HEENT HEENT: Moist mucous membranes - Derm Derm: Warm and dry - Extremities Extremities: Other (L middle finger - small flap laceration near PIP joint. superficial.) - Neuro Neuro: Alert and oriented X 3 Results - Vitals Vitals: Vital Signs - 24 hr 06/24/20 07:20 Temperature 37 C Heart Rate 64 Respiratory 18 Rate Blood Pressure 145/87 H O2 Saturation 98 Oxygen O2 Source Room air Procedures - Laceration (location) L middle finger Length in cm: 1 Wound type: Flap, Superficial Neurovascular status: Sensory intact, Motor intact Tendon involvement: Tendon intact Wound Preparation: Irrigated copiously NS Skin layer closure: Dermabond (and tring repair kit) PD MEDICAL DECISION MAKING - ED course Complexity details: reviewed results, re-evaluated patient, considered differential, d/w patient ED course: Laceration repaired. Tolerated well. Warnings of infection and instructions on wound care given at bedside. Also counseled on how to minimize scarring. Patient counseled regarding signs and symptoms for which I believe and urgent re-evaluation would be necessary. Patient with good understanding of and agreement to plan and is comfortable going home at this time This document was made in part using voice recognition software. While efforts are made to proofread this document, sound alike and grammatical errors may occur. Tdap given Departure - Departure Disposition: 01 Home, Self Care Clinical Impression: Finger laceration Qualifiers: Encounter type: initial encounter Finger: middle finger Damage to nail status: without damage Foreign body presence: without foreign body Laterality: left Qualified Code(s): S61.213A - Laceration without foreign body of left middle finger without damage to nail, initial encounter Condition: Good Instructions: ED Laceration Hand Follow-Up: ANGIE AYALA ARNP [Primary Care Provider] - Comments: Follow-up either here or with your doctor if you notice redness, swelling or drainage from the wound. This should heal well on its own. Return if you worsen. Discharge Date/Time: 06/24/20 08:08
== END 2020-06-24 08:08 | disposition home or self-care (01) ==
LOC: ED 07:06
DX: S61.213A Laceration without foreign body of left middle finger without damage to nail, initial encounter (principal); W26.8XXA Contact with other sharp object(s), not elsewhere classified, initial encounter; Y93.89 Activity, other specified; Y99.0 Civilian activity done for income or pay; Z23 Encounter for immunization; I10 Essential (primary) hypertension
CPT/HCPCS: 1040M; 12001; 90471; 99283; 99284

== ENCOUNTER 2022-08-31 08:00 | Outpatient (CLI) | payer OTHER ==
[2022-08-31 08:58] LABS: CREATININE 1.2 mg/dL (0.4-1.0)
[2022-08-31] MEDS ORDERED: iohexoL-300 100 ML VIAL ONE (08:58)
[2022-08-31] MEDS ORDERED: iohexoL-300 100 ML VIAL IVP ONE (11:18)
--- NOTE | 2022-08-31 13:34 | CT Report ---
PROCEDURE: PELVIS W INDICATIONS: VENOUS INSUFFICIENCY, ILIAC VEIN COMPRESSION SYNDR CONTRAST: 100ml Omnipaque 300 TECHNIQUE: After the administration of IV contrast, 5 mm thick sections acquired from the iliac crests to the sy mphysis. 5 mm thick coronal and sagittal reformats were acquired. For radiation dose reduction, the following was used: automated exposure control, adjustment of mA and/or kV according to patient siz e. COMPARISON: CT KUB dated 08/18/2018 FINDINGS: Image quality: Excellent. Peritoneum and bowel: Contrast enhanced bowel loops demonstrate normal wall thickness and caliber. No free fluid or air. Genitourinary: Bladder wall thickness is normal. Nodes and vessels: No iliac, pelvic, or inguinal adenopathy. There is mild compression of left commo n iliac vein by overlying left common iliac artery at the level approximately 2.6 cm distal from its confluence with right common iliac vein and best seen on axial image 20. Rest of the iliac arteries a nd veins are normal in size. Bones: No suspicious bony lesions. Miscellaneous: No inguinal hernias. IMPRESSION: 1. 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 2. No acute inflammatory process is seen in the pelvis. Reviewed by: Zachary Reynaga MD on 08/31/2022 1:33 PM PST Approved by: Zachary Reynaga MD on 08/31/2022 1:33 PM PST Station ID: [id number]
== END 2022-08-31 08:01 | disposition home or self-care (01) ==
LOC: LAB 08:00
PROVIDERS: ATTEND Physician Assistant
DX: I87.1 Compression of vein (principal); I87.2 Venous insufficiency (chronic) (peripheral)
CPT/HCPCS: 36415; 72193; 82565; Q9967

== ENCOUNTER 2022-10-30 08:00 | Outpatient (CLI) | payer OTHER | END 2022-10-30 23:59 | disposition home or self-care (01) | LOC: LAB.N 08:00 | PROVIDERS: ATTEND Family Medicine | DX: R60.0 Localized edema (principal) | CPT/HCPCS: 36415; 85379 ==

== ENCOUNTER 2022-11-06 15:07 | Outpatient (CLI) | payer OTHER ==
[2022-11-06 18:04] LABS: CALCIUM 9.3 mg/dL (8.5-10.3); CREATININE 1.1 mg/dL (0.4-1.0); POTASSIUM 3.7 mmol/L (3.5-5.0)
== END 2022-11-06 15:08 | disposition home or self-care (01) ==
LOC: LAB.N 15:07
PROVIDERS: ATTEND Physician Assistant
DX: I87.1 Compression of vein (principal); I87.2 Venous insufficiency (chronic) (peripheral)
CPT/HCPCS: 36415; 80048

== ENCOUNTER 2022-11-13 15:30 | Outpatient (CLI) | payer OTHER ==
[2022-11-13 18:34] LABS: BASOPHILS # (AUTO) 0.1 10^3/uL (0.0-0.1); BASOPHILS % (AUTO) 1.1 %; EOSINOPHILS # (AUTO) 0.3 10^3/uL (0.0-0.7); EOSINOPHILS % (AUTO) 6.4 %; HCT - HEMATOCRIT 42.3 % (37.0-47.0); HGB - HEMOGLOBIN 13.3 g/dL (12.0-16.0); LYMPHOCYTES # (AUTO) 1.5 10^3/uL (1.5-3.5); MEAN CORPUSCULAR HEMOGLOBIN 29.1 pg (27.0-31.0); MEAN CORPUSCULAR HGB CONC 31.4 g/dL (32.0-36.0); MEAN CORPUSCULAR VOLUME 92.6 fL (81.0-99.0); MEAN PLATELET VOLUME 10.1 fL (7.9-10.8); MONOCYTES # (AUTO) 0.5 10^3/uL (0.0-1.0); MONOCYTES % (AUTO) 9.4 %; NEUTROPHILS # (AUTO) 2.9 10^3/uL (1.5-6.6); NEUTROPHILS % (AUTO) 53.9 %; PLT - PLATELET COUNT 302 10^3/uL (130-450); RED BLOOD COUNT 4.57 10^6/uL (4.20-5.40); RED CELL DISTRIBUTION WIDTH 12.9 % (12.0-15.0); WHITE BLOOD COUNT 5.3 x10^3/uL (4.8-10.8)
[2022-11-13 18:41] LABS: BILIRUBIN,URINE NEGATIVE (NEGATIVE); GLUCOSE, URINE (UA) NEGATIVE (NEGATIVE); KETONES,URINE (UA) NEGATIVE (NEGATIVE); LEUKOCYTE ESTERASE, URINE SMALL (NEGATIVE); NITRITE,URINE NEGATIVE (NEGATIVE); OCCULT BLOOD,URINE NEGATIVE (NEGATIVE); PH,URINE 6.5 PH (5.0-7.5); PROTEIN,URINE NEGATIVE (NEGATIVE); UROBILINOGEN,URINE 0.2 (NORMAL) E.U./dL (NORMAL)
[2022-11-13 18:49] LABS: CLARITY,URINE HAZY (CLEAR)
[2022-11-13 18:56] LABS: ALBUMIN 4.1 g/dL (3.2-5.5); ALBUMIN/GLOBULIN RATIO 1.1 (1.0-2.2); ALKALINE PHOSPHATASE 45 IU/L (42-121); ALT ALANINE AMINOTRANSFERASE 31 IU/L (10-60); AST ASPARTATE AMINOTRANSFERASE 24 IU/L (10-42); BILIRUBIN,TOTAL 0.8 mg/dL (0.2-1.0); BUN - BLOOD UREA NITROGEN 26 mg/dL (6-20); CALCIUM 9.2 mg/dL (8.5-10.3); CARBON DIOXIDE - CO2 31 mmol/L (21-32); CHLORIDE 97 mmol/L (101-111); CREATININE 1.1 mg/dL (0.4-1.0); GFR - MDRD 51 (>89); GLUCOSE 91 mg/dL (70-100); POTASSIUM 3.1 mmol/L (3.5-5.0); SODIUM 138 mmol/L (135-145); TOTAL PROTEIN 7.9 g/dL (6.7-8.2)
[2022-11-13 19:03] LABS: THYROID STIMULATING HORMONE 2.44 uIU/mL (0.34-5.60)
[2022-11-13 19:33] LABS: BACTERIA,URINE Many /HPF (None Seen); RBC,URINE 0-5 /HPF (0-5); SQUAMOUS EPITHELIAL CELL,UR FEW Squamous (<= Few)
[2022-11-13 20:46] LABS: CRP - C-REACTIVE PROTEIN < 1.0 mg/dL (0-1.0)
== END 2022-11-13 15:31 | disposition home or self-care (01) ==
LOC: LAB.N 15:30
PROVIDERS: ATTEND Physician Assistant
DX: R60.0 Localized edema (principal)
CPT/HCPCS: 36415; 80050; 81001; 85651; 86140; 87086; 87181

== ENCOUNTER 2022-11-23 15:33 | Outpatient (CLI) | payer OTHER ==
[2022-11-23 17:53] LABS: CALCIUM 9.4 mg/dL (8.5-10.3); POTASSIUM 3.6 mmol/L (3.5-5.0)
== END 2022-11-23 15:34 | disposition home or self-care (01) ==
LOC: LAB.N 15:33
PROVIDERS: ATTEND Physician Assistant
DX: E87.6 Hypokalemia (principal)
CPT/HCPCS: 36415; 80048

== ENCOUNTER 2022-11-28 09:37 | Outpatient (CLI) | payer OTHER ==
[2022-11-28 19:43] LABS: RHEUMATOID FACTOR NEGATIVE (Negative)
== END 2022-11-28 09:38 | disposition home or self-care (01) ==
LOC: LAB.N 09:37
PROVIDERS: ATTEND Physician Assistant
DX: R60.0 Localized edema (principal)
CPT/HCPCS: 36415; 81599; 82550; 86038; 86225; 86235; 86430

== ENCOUNTER 2023-03-19 07:28 | Outpatient (CLI) | payer OTHER ==
[2023-03-19 14:06] LABS: CHOL/HDL RATIO 3.6 (<4.4); CHOLESTEROL 216 mg/dL; HDL CHOLESTEROL 60 mg/dL; LDL CHOLESTEROL,CALCULATED 114 mg/dL; LDL/HDL RATIO 1.9 (<4.4); TRIGLYCERIDES 209 mg/dL; VLDL CHOLESTEROL 42 mg/dL
== END 2023-03-19 07:29 | disposition home or self-care (01) ==
LOC: LAB.N 07:28
PROVIDERS: ATTEND Physician Assistant
DX: E78.5 Hyperlipidemia, unspecified (principal)
CPT/HCPCS: 36415; 80061; 83721

== ENCOUNTER 2023-04-08 14:00 | Outpatient (CLI) | payer OTHER ==
--- NOTE | 2023-04-08 15:37 | XRAY Report ---
PROCEDURE: Chest 2 View X-Ray INDICATIONS: ACUTE BRONCHOSPASM TECHNIQUE: 2 views of the chest were acquired. COMPARISON: None. FINDINGS: Surgical changes and devices: None. Lungs and pleura: No pleural effusions or pneumothorax. Lungs are clear. Mediastinum: Mediastinal contours appear normal. Heart size is normal. Bones and chest wall: No suspicious bony lesions. Overlying soft tissues appear unremarkable. IMPRESSION: No acute cardiopulmonary process. Reviewed by: See Cisneros MD on 04/08/2023 3:36 PM PDT Approved by: See Cisneros MD on 04/08/2023 3:36 PM PDT Station ID: [id number]
== END 2023-04-08 14:15 | disposition home or self-care (01) ==
LOC: DI.N 14:00
PROVIDERS: ATTEND Physician Assistant
DX: J98.01 Acute bronchospasm (principal)

== ENCOUNTER 2023-09-15 20:00 | Emergency (ER) | payer OTHER ==
[2023-09-15 20:07] VITALS: BP 143/89; O2SAT 99
[2023-09-15] MEDS ORDERED: lidocaine 1% 20 ML MDV SUBQ ONE (20:10)
--- NOTE | 2023-09-15 20:21 | ED Physician Documentation ---
PD HPI UPPER EXT INJURY - Stated complaint Stated Complaint: L HAND LAC - Chief complaint Chief Complaint: Ext Problem - History obtained from History obtained from: Patient - Additonal information Additional information: Patient is a 63-year-old female presenting for evaluation of a laceration to her left palm that occurred just prior to arrival. Patient was cutting potatoes with a new knife. Her last tetanus is in 2019. She takes an aspirin daily. 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 : Kidney stones, Other HEENT: None Psych: None Derm: None - Past Surgical History Past Surgical History: Yes - Present Medications Home Medications: Ambulatory Orders Medication Instructions Recorded Confirmed Atorvastatin [Lipitor] 20 mg PO DAILY 04/29/17 09/15/23 [place]-3/Dha/Epa/Fish Oil [Fish Oil 1 each PO DAILY 04/29/17 09/15/23 1,000 mg Softgel] Omeprazole [PriLOSEC] 20 mg PO DAILY 04/29/17 09/15/23 hydroCHLOROthiazide [Hydrodiuril] 10 mg PO DAILY 04/29/17 09/15/23 raNITIdine [Zantac] 150 mg PO DAILY 04/29/17 09/15/23 Naproxen 375 mg PO BID #20 tablet 08/18/18 09/15/23 mycophenolate mofetiL 200 mg PO BID 09/15/23 09/15/23 [Mycophenolate Mofetil] - Allergies Allergies/Adverse Reactions: Allergies Allergy/AdvReac Type Severity Reaction Status Date / Time sulfamethoxazole Allergy Respiratory Verified 04/29/17 19:46 [From Bactrim] trimethoprim [From Bactrim] Allergy Respiratory Verified 08/18/18 16:31 - Social History Does the pt smoke?: No Smoking Status: Never smoker Does the pt drink ETOH?: Yes Does the pt have substance abuse?: No - Immunizations Immunizations are current?: No Immunizations: TDAP >10years/unknown - POLST Patient has POLST: No PD ED PE NORMAL - General General: Alert and oriented X 3, No acute distress, Well developed/nourished - HEENT HEENT: Atraumatic - Cardiac Cardiac: Strong equal pulses - Extremities Extremities: Other (1 cm laceration to the palmar aspect of the left hand near the fifth metacarpal; Normal range of motion at all digits and joints, sensation intact, no active bleeding) PD ED PE EXPANDED - Extremities ROSAS UE/Hands Visual: 1 - laceration Results - Vitals Vitals: Vital Signs - 24 hr 09/15/23 20:01 Temperature 36.0 C L Heart Rate 97 Respiratory 17 Rate Blood Pressure 143/89 H O2 Saturation 99 Oxygen O2 Source Room air Procedures - Laceration (location) Left hand Length in cm: 1 Wound type: Linear, Clean Anesthesia: Lidocaine 1% Wound preparation: Hibiclens, Irrigated copiously NS Skin layer closure: Sutures - enter # (2) Other: Patient tolerated well, No complications, Neurovascular intact, Dressing applied, Tetanus UTD PD Medical Decision Making - ED course ED course: Patient presenting for evaluation of laceration to her left palm that occurred just prior to arrival. Wound was cleaned and sutured. There is no signs of neurovascular or tendon injury. Her tetanus is up-to-date. Patient is counseled regarding wound care instructions, need to return for suture removal as well as concerning symptoms to return for. Departure - Departure Disposition: 01 Home, Self Care Clinical Impression: Laceration of left hand Condition: Stable Instructions: ED Laceration Ext Sutr Stap Tape Comments: Come back for any signs of infection which would include: Redness, swelling, drainage, increased pain, or fevers. You can wash it soap and water. Keep it covered and moist with bacitracin ointment which is available over the counter; avoid neosporin. Follow-up with your physician in about 14 days for suture removal. Forms: PCP List Discharge Date/Time: 09/15/23 20:57
== END 2023-09-15 20:57 | disposition home or self-care (01) ==
LOC: ED 20:00
DX: S61.412A Laceration without foreign body of left hand, initial encounter (principal); W26.0XXA Contact with knife, initial encounter; Y93.G3 Activity, cooking and baking
CPT/HCPCS: 12001; 99282

== ENCOUNTER 2023-10-12 08:22 | Outpatient (CLI) | payer OTHER ==
--- NOTE | 2023-10-22 11:48 | Mammography Report ---
BILATERAL DIGITAL SCREENING MAMMOGRAM 3D/2D: 10/12/2023 CLINICAL: Routine screening. Family history of breast cancer. Comparison is made to exams dated: 12/09/2017 mammogram and 12/07/2013 mammogram - outside location. Both breasts are heterogeneously dense, which may obscure small masses (category c / 51-75% glandular tissue). There are benign calcifications in both breasts. No significant masses, calcifications, or other findings are seen in either breast. There has been no significant interval change. IMPRESSION: BENIGN There is no mammographic evidence of malignancy. A 1 year screening mammogram is recommended. Based on Tyrer-Cuzick model (a risk assessment model), the patient's lifetime risk is 28.0% and her 1 0 year risk is 12.4%. If a patient has an elevated risk, a more comprehensive evaluation should be co nsidered and/or a referral to a genetic counselor. The [place] [employer], [employer], and NCCN Guidelines advise the consideration of Breast MRI as an adjunct to screening mammo graphy in patients whose "Lifetime risk to develop breast cancer" is 20% or higher. This exam was interpreted at Station ID: [id number]. NOTE: For mammograms, a report in lay terms will be sent to the patient. Approximately 15% of breast malignancies will not be visualized mammographically. In the management of a palpable breast mass, a negative mammogram must not discourage biopsy of a clinically suspicious lesion. Electronically Signed By: Bonilla sinclair/penrad:10/21/2023 09:58:19 ACR BI-RADS Category 2: Benign Finding(s) 3342F PARENCHYMAL PATTERN: (D) - The breast(s) demonstrate(s) heterogeneously dense fibroglandular parenchy ma. BI-RADS CATEGORY: (2) - 2 Mammogram [id number] 1 year screening LATERALITY: (B)
== END 2023-10-12 08:23 | disposition home or self-care (01) ==
LOC: DI.N 08:22
DX: Z12.31 Encounter for screening mammogram for malignant neoplasm of breast (principal); Z80.3 Family history of malignant neoplasm of breast; R92.333 Mammographic heterogeneous density, bilateral breasts

== ENCOUNTER 2023-12-16 07:27 | Outpatient (CLI) | payer OTHER ==
[2023-12-16 11:41] LABS: BASOPHILS # (AUTO) 0.1 10^3/uL (0.0-0.1); BASOPHILS % (AUTO) 1.5 %; EOSINOPHILS # (AUTO) 0.2 10^3/uL (0.0-0.7); EOSINOPHILS % (AUTO) 6.5 %; HCT - HEMATOCRIT 41.3 % (37.0-47.0); HGB - HEMOGLOBIN 12.7 g/dL (12.0-16.0); MEAN CORPUSCULAR HEMOGLOBIN 28.5 pg (27.0-31.0); MEAN CORPUSCULAR HGB CONC 30.8 g/dL (32.0-36.0); MEAN CORPUSCULAR VOLUME 92.8 fL (81.0-99.0); MEAN PLATELET VOLUME 10.4 fL (7.9-10.8); MONOCYTES # (AUTO) 0.3 10^3/uL (0.0-1.0); NEUTROPHILS # (AUTO) 1.7 10^3/uL (1.5-6.6); NEUTROPHILS % (AUTO) 52.7 %; PLT - PLATELET COUNT 263 10^3/uL (130-450); RED BLOOD COUNT 4.45 10^6/uL (4.20-5.40); RED CELL DISTRIBUTION WIDTH 13.3 % (12.0-15.0); WHITE BLOOD COUNT 3.2 x10^3/uL (4.8-10.8)
[2023-12-16 11:58] LABS: ALBUMIN 4.2 g/dL (3.2-5.5); ALBUMIN/GLOBULIN RATIO 1.4 (1.0-2.2); ALKALINE PHOSPHATASE 56 IU/L (42-121); ALT ALANINE AMINOTRANSFERASE 20 IU/L (10-60); AST ASPARTATE AMINOTRANSFERASE 19 IU/L (10-42); BILIRUBIN,TOTAL 0.4 mg/dL (0.2-1.0); BUN - BLOOD UREA NITROGEN 25 mg/dL (6-20); CARBON DIOXIDE - CO2 31 mmol/L (21-32); CHLORIDE 101 mmol/L (101-111); CHOL/HDL RATIO 2.5 (<4.4); CHOLESTEROL 154 mg/dL; GFR - MDRD 56 (>89); GLUCOSE 85 mg/dL (74-104); HDL CHOLESTEROL 62 mg/dL; LDL CHOLESTEROL,CALCULATED 75 mg/dL; LDL/HDL RATIO 1.2 (<4.4); POTASSIUM 3.9 mmol/L (3.5-4.5); SODIUM 139 mmol/L (135-145); TOTAL PROTEIN 7.3 g/dL (6.4-8.9); TRIGLYCERIDES 86 mg/dL (48-352); VLDL CHOLESTEROL 17 mg/dL
== END 2023-12-16 07:28 | disposition home or self-care (01) ==
LOC: LAB.N 07:27
PROVIDERS: ATTEND Physician Assistant
DX: M34.9 Systemic sclerosis, unspecified (principal); K44.9 Diaphragmatic hernia without obstruction or gangrene; I25.10 Atherosclerotic heart disease of native coronary artery without angina pectoris; E78.5 Hyperlipidemia, unspecified
CPT/HCPCS: 36415; 80053; 80061; 83721; 85025

== ENCOUNTER 2024-06-06 16:16 | Outpatient (CLI) | payer OTHER ==
[2024-06-06 18:53] LABS: BILIRUBIN,URINE NEGATIVE (NEGATIVE); GLUCOSE, URINE (UA) NEGATIVE (NEGATIVE); KETONES,URINE (UA) NEGATIVE (NEGATIVE); LEUKOCYTE ESTERASE, URINE MODERATE (NEGATIVE); NITRITE,URINE NEGATIVE (NEGATIVE); OCCULT BLOOD,URINE LARGE (NEGATIVE); PROTEIN,URINE NEGATIVE (NEGATIVE); UROBILINOGEN,URINE 0.2 (NORMAL) E.U./dL (NORMAL)
[2024-06-06 19:01] LABS: CLARITY,URINE CLOUDY (CLEAR)
[2024-06-06 19:28] LABS: BACTERIA,URINE Few /HPF (None Seen); SQUAMOUS EPITHELIAL CELL,UR NONE SEEN (<= Few)
[2024-06-06 21:11] LABS: CALCIUM 9.7 mg/dL (8.5-10.3); POTASSIUM 3.7 mmol/L (3.5-4.5)
== END 2024-06-06 16:17 | disposition home or self-care (01) ==
LOC: LAB.N 16:16
PROVIDERS: ATTEND Physician Assistant
DX: J06.9 Acute upper respiratory infection, unspecified (principal); R31.0 Gross hematuria
CPT/HCPCS: 36415; 80048; 81001; 87077; 87086; 87181

== ENCOUNTER 2024-06-26 08:09 | Emergency (ER) | payer OTHER ==
--- NOTE | 2024-06-26 08:26 | ED Physician Documentation ---
PD HPI ABD PAIN - Stated complaint Stated Complaint: - Chief complaint Chief Complaint: UTI - History obtained from History obtained from: Patient - History of Present Illness Timing - onset: How many days ago (1-2) Timing - duration: Days (1-2) Timing - details: Gradual onset, Still present, Intermittant Location: Suprapubic Associated symptoms: Dysuria, Hematuria, Other (some pain to right flank at times). No: Fever, Nausea Review of Systems Constitutional: denies: Fever, Chills : reports: Frequency, Hematuria. 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 : Kidney stones, Other HEENT: None Psych: None Derm: None - Past Surgical History Past Surgical History: Yes - Present Medications Home Medications: Ambulatory Orders Medication Instructions Recorded Confirmed [place]-3/Dha/Epa/Fish Oil [Fish Oil 1 each PO DAILY 04/29/17 06/26/24 1,000 mg Softgel] hydroCHLOROthiazide [Hydrodiuril] 10 mg PO DAILY 04/29/17 06/26/24 Loratadine [Claritin] 1 cap PO DAILY 06/26/24 06/26/24 Phenazopyridine HCl [Pyridium] 100 mg PO TID PRN #15 tablet 06/26/24 Potassium Citrate [Potassium] 1 cap PO DAILY 06/26/24 06/26/24 cephALEXin [Keflex] 500 mg PO TID #20 cap 06/26/24 mycophenolate mofetiL [Cellcept] 1,500 mg PO BID 06/26/24 06/26/24 - Allergies Allergies/Adverse Reactions: Allergies Allergy/AdvReac Type Severity Reaction Status Date / Time sulfamethoxazole Allergy Respiratory Verified 06/26/24 08:15 [From Bactrim] trimethoprim [From Bactrim] Allergy Respiratory Verified 06/26/24 08:15 - Social History Does the pt smoke?: No Smoking Status: Never smoker Does the pt drink ETOH?: Yes Does the pt have substance abuse?: No - Immunizations Immunizations are current?: No Immunizations: TDAP >10years/unknown - POLST Patient has POLST: No PD ED PE NORMAL - Vitals Vital signs reviewed: Yes - General General: Alert and oriented X 3, No acute distress, Well developed/nourished - Abdomen Abdomen: Soft, Non tender, Non distended - Back Back: No CVA TTP Results - Vitals Vitals: Vital Signs - 24 hr 06/26/24 06/26/24 08:15 09:47 Temperature 36.8 C Heart Rate 61 82 Respiratory 16 14 Rate Blood Pressure 127/77 132/84 H O2 Saturation 100 98 Oxygen O2 Source Room air - Labs Labs: Laboratory Tests 06/26/24 08:30 Urine Color LIGHT YELLOW Urine Clarity CLEAR Urine pH 7.0 Ur Specific [place] <=1.005 Urine Protein NEGATIVE Urine Glucose (UA) NEGATIVE Urine Ketones NEGATIVE Urine Occult Blood NEGATIVE Urine Nitrite NEGATIVE Urine Bilirubin NEGATIVE Urine Urobilinogen 0.2 (NORMAL) Ur Leukocyte Esterase TRACE H Urine RBC 0-5 Urine WBC 0-3 Urine WBC Clumps PRESENT Ur Squamous Epith Cells FEW Squamous Urine Bacteria Few Ur Microscopic Review INDICATED Urine Culture Comments INDICATED PD Medical Decision Making - ED course Complexity details: reviewed results (culture result from 2 1/2 weeks ago. ), considered differential (having urinary frequency and some blood, similar to few weeks ago with culture positive UTI of Klebsiella, improved with Macrobid. Symptoms returned last couple of days. Seems likely UTI again. Had left flank pain prior, now right. Not severe. Doubt stone. ), d/w patient Departure - Departure Disposition: 01 Home, Self Care Clinical Impression: Urinary frequency UTI (urinary tract infection) Qualifiers: Urinary tract infection type: acute cystitis Hematuria presence: with hematuria Qualified Code(s): N30.01 - Acute cystitis with hematuria Condition: Stable Record reviewed to determine appropriate education?: Yes Instructions: ED UTI Cystitis Female Follow-Up: Mildred Cohen PA-C [Primary Care Provider] - Prescriptions: cephALEXin [Keflex] 500 mg PO TID #20 cap Phenazopyridine HCl [Pyridium] 100 mg PO TID PRN #15 tablet PRN Reason: Abdominal Pain Comments: Your urine test does show signs of infection enough to be consistent with your symptoms. It seems reasonable to treated with an antibiotic as well as medication to help with urinary discomfort (frequency). As the infection clears the irritation diminishes and the bleeding should stop as well as the symptoms. This typically will be over the first 2 to 3 days. I would go with the full course of the antibiotics to ensure clear the infection. I chose cephalexin antibiotic as its common coverage for bladder infections and the recent infection you had with Klebsiella would be sensitive to it. I sent your prescriptions to the [facility] in [place] which is open today until 5 PM. Forms: PCP List Discharge Date/Time: 06/26/24 09:47
[2024-06-26 08:59] LABS: BILIRUBIN,URINE NEGATIVE (NEGATIVE); GLUCOSE, URINE (UA) NEGATIVE (NEGATIVE); KETONES,URINE (UA) NEGATIVE (NEGATIVE); LEUKOCYTE ESTERASE, URINE TRACE (NEGATIVE); NITRITE,URINE NEGATIVE (NEGATIVE); OCCULT BLOOD,URINE NEGATIVE (NEGATIVE); PROTEIN,URINE NEGATIVE (NEGATIVE); UROBILINOGEN,URINE 0.2 (NORMAL) E.U./dL (NORMAL)
[2024-06-26 09:00] LABS: CLARITY,URINE CLEAR (CLEAR)
[2024-06-26 09:18] LABS: BACTERIA,URINE Few /HPF (None Seen); RBC,URINE 0-5 /HPF (0-5); SQUAMOUS EPITHELIAL CELL,UR FEW Squamous (<= Few); WBC CLUMPS,URINE PRESENT; WBC,URINE 0-3 /HPF (0-5)
[2024-06-26] MEDS: cephALEXin 250 MG CAPSULE PO STA (09:35)
[2024-06-26] MEDS: PHENAZOPYRIDINE 100 MG TABLET PO STA (09:35)
[2024-06-26 09:54] VITALS: BP 132/84; O2SAT 98
== END 2024-06-26 09:47 | disposition home or self-care (01) ==
LOC: ED 08:09
DX: N30.01 Acute cystitis with hematuria (principal); R35.0 Frequency of micturition; I10 Essential (primary) hypertension; Z87.442 Personal history of urinary calculi; Z79.899 Other long term (current) drug therapy
CPT/HCPCS: 81001; 87086; 99283; A9270; 81003